=== PATIENT | male | born 2000 | race Caucasian/White ===

== ENCOUNTER 2023-07-01 23:57 | Emergency (ER) | payer BC ==
[~2023-07-01] VITALS: Ht 182.9 cm; Wt 86.2 kg
[~2023-07-01 23:57] MED LIST: AMOX50SU PO; CODACEE120 PO; RXCODACESY PO; Zofran Odt4 MG SL
[2023-07-02 00:55] VITALS: BP 143/84
== END 2023-07-02 03:05 | disposition home or self-care (01) ==
LOC: ER 23:57
DX: T16.1XXA Foreign body in right ear, initial encounter (principal)
CPT/HCPCS: 69200; 99282-25; A9270